=== PATIENT | female | born 1930 | race African-American/Black ===

== ENCOUNTER 2020-07-31 10:59 | Emergency (ER) | payer OTHER ==
--- NOTE | 2020-07-31 11:19 | TELE ---
HPI Do you have fever,cough or shortness of breath?: No - General Reason For Visit: VIRTUAL VISIT History Source: Patient Review of Systems - Review of Systems Constitutional: No: Chills, Fever Respiratory: No: Cough, Shortness of Breath Cardiac (ROS): No: Chest Pain *Physical Exam - Physical Exam HEENT: positive: Normal Voice - Medical Decision Making 07/31/20 11:18 Called for covid testing prior to routine CXR No sxs at this time Will proceed to [facility] Discharge Diagnosis at time of Disposition: Encounter by telehealth for suspected COVID-19 - Referrals Follow-up Referral(s): Ronald Cueto MD [Primary Care Provider] - - Patient Instructions - Discharge Disposition: HOME
== END 2020-07-31 11:24 | disposition home or self-care (01) ==
LOC: JVIRT 10:59
DX: Z11.59 Encounter for screening for other viral diseases (principal)
CPT/HCPCS: 99441-95; C9803; U0003

== ENCOUNTER 2020-08-03 04:34 | Day surgery (SDC) | payer OTHER ==
[2020-08-02 14:18] VITALS: BMI 24.8
--- NOTE | 2020-08-02 23:20 | PROC ---
Procedure Note Procedure: Pre procedure Diagnosis: Hip Osteoarthritis Post Procedure Diagnosis: same Anesthesia: local Procedure Performed: Right Hip Injection under fluoroscopic guidance After the risks and benefits were explained, informed consent was obtained. The patient was then taken to the procedure room and positioned supine on the procedure table. Time out was performed. The region overlying the right hip joint was identified using fluoroscopy. The skin was prepped and draped in the usual sterile fashion. The skin and soft tissues were anesthetized using 1% lidocaine. Using fluoroscopic guidance, a 22 gauge 3.5 inch spinal needle was then introduced to the hip joint at the center of the junction of the femoral neck. Omnipaque 180 confirmed appropriate needle placement. At mixture of 7 cc .5% bupivacaine and 1 cc Kenalog was then injected. The patient tolerated the procedure well and there were no complications. The patient was taken to the post procedure recovery area in good condition. Vital signs remained stable before, during, and after the procedure. The patient was given oral and written follow-up instructions. The patient was given a follow up appointment with me in the near future. Waldemar Bowie DO
--- OUTSIDE RECORDS SUMMARY | 2020-08-03 04:37 | XMS ---
:1930 Author Organization [facility] Care Team Providers Name Role Phone Nory Unavailable Unavailable Erosa Unavailable Erosa Unavailable [facility]HHVCC Unavailable Unavailable Other Unavailable Unavailable NICOLETTE HANARCHANI Unavailable Unavailable BA HUITRON Unavailable Unavailable MD Saji Unavailable Unavailable MD Saji Unavailable Unavailable MD Saji Unavailable Unavailable MD Saji Unavailable Unavailable MD Saji Unavailable Unavailable MD Saji Unavailable Unavailable MD Saji Unavailable Unavailable MD Saji Unavailable Unavailable MD Saji Unavailable Unavailable MD Saji Unavailable Unavailable MD Saji Unavailable Unavailable MD Saji Unavailable Unavailable MD Saji Unavailable Unavailable MD Saji Unavailable Unavailable MD Saji Unavailable Unavailable NIR ABARCA Unavailable Unavailable Re-disclosure Warning The records that you are about to access may contain information from federally- assisted alcohol or drug abuse programs. If such information is present, then the following federally mandated warning applies: This information has been disclosed to you from records protected by federal confidentiality rules (42 CFR part 2). The federal rules prohibit you from making any further disclosure of this information unless further disclosure is expressly permitted by the written consent of the person to whom it pertains or as otherwise permitted by 42 CFR part 2. A general authorization for the release of medical or other information is NOT sufficient for this purpose. The Federal rules restrict any use of the information to criminally investigate or prosecute any alcohol or drug abuse patient.The records that you are about to access may contain highly sensitive health information, the redisclosure of which is protected by Article 27-F of the [facility] Public Health law. If you continue you may haveaccess to information: Regarding HIV / AIDS; Provided by facilities licensed or operated by the [facility] Office of Mental Health; or Provided by the [facility] Office for People With Developmental Disabilities. If such information is present, then the following [facility] mandated warning applies: This information has been disclosed to you from confidential records which are protected by state law. State law prohibits you from making any further disclosure of this information without the specific written consent of the person to whom it pertains, or as otherwise permitted by law. Any unauthorized further disclosure in violation of state law may result in a fine or correction sentence or both. A general authorization for the release of medical or other information is NOT sufficient authorization for further disclosure. Encounters Encounter Providers Location Date Indications Data Source(s ) Outpatient Attender: James-RAD DEPT 07/30/2020 [facility] 02:16:47 PM [facility] NoryAttender: EDT Doctor Other Attender: Waldemar 07/24/2020 [facility] EDT Office Attender: Waldemar Bowie 07/24/2020 12:00:00 AM EDT [facility] ([facility] Office Attender: Waldemar Bowie 07/24/2020 12:00:00 AM EDT [facility] ([facility] Office Outpatient Attender: Maria Elena 5T-CARD DEPT [facility]: [facility] 05/31/2020 11:59:00 PM EDT Patient discharged. Outpatient Attender: Karlos Ramirez-LAB 05/25/2020 02:57:47 PM S - Javad Lennon MD EDT - 05/28/2020 [facility] 11[facility] EDT Patient discharged. Outpatient Attender: SVH9 HHHV 12/13/2019 01:15:26 PM [facility] ([facility]) Patient admitted. Outpatient Attender: TEVIN, 11/25/2019 06:00:00 [id number] [facility] TANYAAdmitter: AMINATA ABARAC [facility] TANYAReferrer: JoniatiONEIL Aguilar [id number] Outpatient Attender: TOMY, 10/27/2018 06:00:00 AM R42 [facility] ZVIAdmitter: MORENITA HUITRON [facility] R42 Insurance Providers Payer name Policy type Policy ID Covered Covered green party's Policy P jessica / Coverage green party ID relationship to [place] Inf ormation type medrano MEDICAID [id number] SP [id number] MEDICARE [id number] SP [id number] 65 5 Medicare Part Medicare [id number] 1 [id number] B Outpatient 5 Medicaid Medicaid [id number] Medicare Medicare [id number] 1 [id number] M MEDICAID OF [id number] [place] MEDIC[place] [id number] PART B [facility] Medicare Part Medicare [id number] 1 [id number] B Outpatient 5 Medicare Part Medicare [id number] 1 [id number] B Outpatient 5 MEDICAID [id number] SP [id number] MEDICARE [id number] SP [id number] 65 5 MEDICAID [id number] PT [id number] MEDICARE [id number] PT [id number] 65 5 Problems, Conditions, and Diagnoses Code Display Name Description Problem Type Effective Data Sour ce(s) Dates M75.51 Bursitis of right BURSITIS OF RIGHT Problem 07/24/2020 [facility] M75.41 Impingement syndrome IMPINGEMENT SYNDROME Problem 07/24 [facility] ([address] of right shoulder OF RIGHT SHOULDER 12:00:00 AM [facility]) 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 [facility] ([address] osteoarthritis, OSTEOARTHRITIS, 12:00:00 AM [facility] RIGHT HIP ED[facility]) I10 Essential (primary) HTN (hypertension) Diagnosis 05/31/20 20 [facility] [place] hypertension 09:53:00 AM [facility] Z11.59 Encounter for Encounter for Diagnosis 05/28/2020 [facility] screening for other laboratory testing 09:09:00 AM [place] viral diseases for COVID-19 virus EDT Ho spital R94.31 Abnormal ABNORMAL Diagnosis 11/25/2019 [place] electrocardiogram ELECTROCARDIOGRAM 06:00:00 AM [facility] [ECG] [EKG] (ECG) (EKG) [employer] Z01.810 Encounter for ENCOUNTER FOR Diagnosis 11/25/2019 [facility] preprocedural PREPROCEDURAL 06:00:00 AM [facility] cardiovascular CARDIOVASCULAR [facility] Care examination [employer] Surgeries/Procedures Procedure Description Date Indications Data Source(s) Documentation of current 07/24/2020 [facility] (procedure) 12:00:00 AM [facility], ) EDT Documentation of current 07/24/2020 [facility] ([facility] (procedure) 12:00:00 AM [facility], ) EDT Injection, bupivicaine 07/24/2020 [facility] ([facility] hydrochloride, 30 ml 12:00:00 AM [facility] , [facility]) EDT Injection, triamcinolone 07/24/2020 [facility] ([facility] acetonide, preservative free, 12:00:00 [facility]) 1 mg EDT Injection, lidocaine hcl for 07/24/2020 [facility] ([facility] intravenous infusion, 10 mg 12:00:00 [facility]) EDT OFFICE OUTPATIENT VISIT 25 07/24/2020 Yoel INIGUEZ ([facility] MINUTES 12:00:00 [facility]) EDT ARTHROCENTESIS, LARGE, WITH 07/24/2020 [facility] ULTRASOUND 12:00:00 [facility]) EDT Electrocardiographic 05/31/2020 [facility] procedure (procedure) 10:13:00 AM System EDT - 05/31/2020 10:13:00 AM EDT Results ID Date Data Source [id number] 07/31/2020 09:20:00 AM EDT [facility] Transvaginal sonographyHISTORY:PainTECHN IQUE:Sonographic evaluation was performed via the transvaginalapproach. Images were o btained in the longitudinal andtransverseplanes.FINDINGS:The uterus measures 5.8 x 2.5 x 4.4 centimeters in size.Calcifications arepresent within th e uterus to leiomyomatouschange.The endometrial thickness measures 7.3 mm.Th ere is asmall amount of fluid within the endometrial cavity.No evidence of free f luid within the cul-de-sac.Theovaries were not seen.IMPRESSION:Small leiomyomatous uterus.Minimal fluid present withinthe endometrial cavity.The ovaries were not seen.Electronically Signed:Artemio at 10:34 EDTTel , Service support ,[phone] Name Value Range Interpretation Code Description Data Theresa rce(s) Supporting Document(s ) ID Date Data Source [id number] 07/31/2020 09:20:00 AM EDT [facility] Sonogram of the pelvisHISTORY:PainFINDIN GS:Sonographic evaluation was performed of both longitudinal andtransverse planes. Examination utilizes Realtime grayscaleultrasonography.Theexamination was performed via the transabdominal approach.The uterus measures 5.8 x 2.5 x 4.4 centimeters insize.The endometrium was not seen.Calcifications present within t he uterus.No evidence of free fluidwithin the cul-de-sac.The ovaries were not seen.IMP RESSION:Calcified smallleiomyomatous uterus.Please see transvaginal sonogram report.Electronically Signed:Artemio at 12:56 EDTTel , Service support ,[phone] Name Value Range Interpretation Code Description Data Thereas rce(s) Supporting Document(s ) ID Date Data Source [id number] 07/31/2020 09:20:00 AM EDT [facility] Ultrasound of the abdomen (Complete)YASEMIN ENT DEMOGRAPHICS: Female patient 89 yearsCLINICAL INFORMATION: Pain;TECHN IQUE: Transcutaneous ultrasonography of the abdomen wasperformed. Real-time imagin g withimaging documentation wasperformed. Complete evaluation was performed, inclu dingevaluation each structure ofthe abdominal ultrasound protocol.COMPARISON: No rel evant prior examinations are availableforreview.FINDINGS:The liver de monstrates homogeneous echotexture without focallesion.Hepatic size is within judit l limits. Its contours aremaintained. Hepatic and portal veins appear patent.N ointrahepatic ductal dilatation is found. The common ductmeasures 0.3 cm. The gal lbladder is intactwithout calculi. The gallbladder wall thickness is within phy siologic limits. No tenderness was elicitedwith direct compression by thetr ansducer (no sonographic Ramírez''s sign identified). Thepancreas appearsintact , allowing for the limited evaluation bythe ultrasound technique. The spleen is naeem ears unremarkable.It is normal in size without focal lesion appreciable byultra sound technique.The right kidneymeasures approximately 6 cm in length. Itdemonst rates no suspicious mass, calculus or hydronephrosis. Renalcortical and medull naz interstitial parenchyma isuniformly hyperechoic. Renal pyramids are hypoec hoic.Therenal cortex is considerably thinned. No suspicious renalmass is discrimin ated. Small cortical cystsare present.The left kidney measures approximately 9 cm in length. Itdemonstrates no suspicious mass,calculus or hydronephrosis.The abdo denise aorta measures in its infrarenal segment less than2.0 cm atmaximum anter ior to posterior diameter. The IVCappears intact.IMPRESSION: Differential right renalatrophy.Electronically Signed:Nikhil Mckoy, at 9:59 EDTTel , Servicesupport , [phone] Name Value Range Interpretation Code Description Data Theresa rce(s) Supporting Document(s ) ID Date Data Source [id number] 06/03/2020 02:05:19 AM EDT [facility] Name Value Range Interpretation Description Data Sup porting Code Source(s) Document(s ) 17727-2 NEGATIVE Testing Normal (applies COVID-19.. Rah iore was performed to non-numeric Health Syst em using Brown ID results) NOW COVID-19, an isothermal nucleic acid amplification technology for the qualitative detection of nucleic acid from the SARS-CoV-2 viral RNA in respiratory specimens. The ID NOW COVID-19 test has been approved by the Food and Drug Administration (FDA) under an Emergency Use Authorization for use by authorized laboratories. Reference Range: NEGATIVE . ID Date Data Source [id number] 05/28/2020 09:58:[address] [facility] Name Value Range Interpretation Code Description Data Theresa rce(s) Supporting Document(s ) COVID-19.. [facility] This lab was ordered by [facility] and reported by [facility]. Procedure Social History Code Duration Value Status Description Data Source(s ) Smoking 07/25/2020 Born: [place] No completed Born: [place] No ME D[facility] (St 12:00:00 AM EDT smoking No smoking No [facility], drinking No drinking No drugs ) drugs Smoking 07/25/2020 Unknown if ever completed Unknown if ever [facility] EN (St 12:00:00 AM EDT smoked smoked [facility], ) Vital Signs ID Date Data Source UNK Name Value Range Interpretation Code Description Data Source(s) Heart rate 68 /min 68 /min [facility] ([facility] , ) Respiratory rate 14 /min 14 /min [facility] ( [facility] , ) Inhaled oxygen 98 % 98 % [facility] ([facility], ) Diastolic blood 60 mm[Hg] 60 mm[Hg] [facility] (S t pressure [facility] , ) Systolic blood 100 mm[Hg] 100 mm[Hg] [facility] ([facility] , )
[2020-08-03 08:40] VITALS: TEMP 97
[2020-08-03] MEDS ORDERED: LIDOCAINE HCL 1% PRESERVATIVE FREE - 30ML VIAL IJ ONE (10:43)
[2020-08-03] MEDS ORDERED: TRIAMCINOLONE ACET 40MG/1ML VIAL IM ONE (10:43)
[2020-08-03] MEDS ORDERED: BUPIVACAINE HCL/PF 0.5% (5 MG/ML) 30 ML VIAL IJ ONE (10:43)
[2020-08-03] MEDS ORDERED: IOHEXOL 180 MG/1 ML ML IJ ONE (10:43)
[2020-08-03 15:30] VITALS: BP 120/60; PULSE 74
== END 2020-08-03 11:40 | disposition home or self-care (01) ==
LOC: JASU-SURG 04:34
PROVIDERS: ATTEND Pain Medicine Pain Medicine
PROC: 3E0U33Z Introduction of Anti-inflammatory into Joints, Percutaneous Approach (ICD-10-PCS; 2020-08-03)
PROC: 3E0U3BZ Introduction of Anesthetic Agent into Joints, Percutaneous Approach (ICD-10-PCS; principal; 2020-08-03 10:00)
DX: M16.11 Unilateral primary osteoarthritis, right hip (principal)
CPT/HCPCS: 76000-TC-FY